=== PATIENT | female | born 1965 | race Caucasian/White ===

== ENCOUNTER 2024-04-01 14:32 | Outpatient (CLI) | payer OTHER ==
[2024-04-01] MEDS ORDERED: Iopamidol 370 76% 100 ML VIAL ONE (15:12)
== END 2024-04-01 14:33 | disposition home or self-care (01) ==
LOC: BICCT 14:32
PROVIDERS: ATTEND Internal Medicine Hematology & Oncology
DX: C50.112 Malignant neoplasm of central portion of left female breast (principal); N63.20 Unspecified lump in the left breast, unspecified quadrant; R59.0 Localized enlarged lymph nodes
CPT/HCPCS: 71260; 74177; Q9967